=== PATIENT | male | born 1970 | race Caucasian/White ===

== ENCOUNTER 2020-05-16 01:17 | Outpatient (CLI) | payer BC, SELFPAY ==
[2020-05-16 19:02] LABS: SARS-CoV-2 RNA PCR Negative
== END 2020-05-16 01:18 | disposition home or self-care (01) ==
LOC: ANHCOVIDDT 01:18
PROVIDERS: PCP Family Medicine; Visit Provider Internal Medicine Gastroenterology
DX: Z01.812 Encounter for preprocedural laboratory examination (principal); Z20.828 Contact with and (suspected) exposure to other viral communicable diseases
CPT/HCPCS: 87635; C9803; U0003

== ENCOUNTER 2020-05-18 00:41 | Day surgery (SDC) | payer BC, SELFPAY ==
[2020-05-15 09:04] VITALS: BMI 23.5
[2020-05-18 06:22] VITALS: BP 129/79; PULSE 95; RESP 16; TEMP 36.1; O2SAT 98
[2020-05-18] MEDS: LACTATED RINGERS 1,000 ML 150 ML IV CONT (06:28)
--- NOTE | 2020-05-18 07:14 | WPDANESEPPF ---
Anes - Initial Pre Proc Eval Procedure: Operation Date: 05/18/20 07:30 Proposed Procedures p Screening Colonoscopy - Bandar Thurman MD Date/Time: 05/18/20 07:14 Surgeon: Bandar Thurman MD Pre Op Diagnosis: neoplasm screening Patient Data Age: 49 Gender: M Height: 5 ft 7 in Weight: 66.4 kg Last Vital Signs Temp 97 F L 05/18/20 06:22 Pulse 95 05/18/20 06:22 Resp 16 05/18/20 06:22 BP 129/79 05/18/20 06:22 Pulse Ox 98 05/18/20 06:22 Allergies Allergy/AdvReac Type Severity Reaction Status Date / Time No Known Allergies Allergy Verified 05/18/20 06:21 Home Medications Medication Instructions Recorded Confirmed Type multivitamin 1 tablet PO DAILY 08/18/19 05/15/20 History Patient hx anesthesia problems: none Family hx anesthesia problems: none PMFSH Past Medical History Medical History (Updated 12/09/19 @ 12:29 by Danny Gonzalez MD) Fam hx-ischem heart disease Surgical History Surgical History H/O vasectomy Family History Family History Father Family history of hypercholesterolemia Family history of mental disorder Hypertension Family history of coronary artery disease Mother Family history of hypercholesterolemia Family history of coronary artery disease Grandparent Hypertension Other Family history of cardiovascular disease Social History Social History Smoking status: Never smoker Alcohol intake: current Substance use type: does not use Living arrangements: with family Gender identity (if verbalized by the patient): Male Spiritual care concerns: No Anes - Eval Final PreProcedure Day of Procedure 05/18/20 07:14 Patient weight: normal Heart: regular rate and rhythm Lungs: clear to auscultation Airway: Mallampati scale class 1 Neurological: alert and oriented Last oral intake: >/= 8 hours ASA classification: I Emergent: no Anesthetic plan: proceed Anesthesia type and monitoring: general GIVS and standard monitoring Informed Consent: The patient's anesthetic plan and its attendant risks and benefits were discussed with the patient/family/POA. Questions were solicited and answers provided to the satisfaction of the patient/family/POA.
--- NOTE | 2020-05-18 07:51 | WPDGICN ---
Assessment and Plan Assessment and plan (1) Encounter for screening colonoscopy: Code(s): Z12.11 - Encounter for screening for malignant neoplasm of colon Status: Acute Assessment and Plan: Patient presents for screening colonoscopy appears to be at average risk for colon polyps. plan is for colonoscopy. Further recommendations will be given after endoscopy. GI Consult Note Consult date/time: 05/18/20 07:51 HPI: Héctor Manzano is a 49 year old male Seen in evaluation at the request of Dr. Danny Gonzalez. Patient presents for screening colonoscopy. His current weight appetite bowel movements are normal. He denies abdominal pain. He has had no bleeding. His bowel habits are normal. His family history is noncontributory. Review of Systems Review of Systems: All systems reviewed & are unremarkable except as noted in HPI and below PMFSH Past Medical History Medical History (Updated 05/18/20 @ 07:53 by Bandar Thurman MD) Fam hx-ischem heart disease Surgical History Surgical History H/O vasectomy Family History Family History Father Family history of hypercholesterolemia Family history of mental disorder Hypertension Family history of coronary artery disease Mother Family history of hypercholesterolemia Family history of coronary artery disease Grandparent Hypertension Other Family history of cardiovascular disease Social History Social History Smoking status: Never smoker Alcohol intake: current Substance use type: does not use Living arrangements: with family Gender identity (if verbalized by the patient): Male Spiritual care concerns: No Meds Home Medications and Allergies Home Medications Medication Instructions Recorded Confirmed Type multivitamin 1 tablet PO DAILY 08/18/19 05/15/20 History Allergies Allergy/AdvReac Type Severity Reaction Status Date / Time No Known Allergies Allergy Verified 05/18/20 06:21 Vital Signs Vital Signs - 24 hr 05/18/20 06:22 Temperature 97 F L Pulse Rate 95 Respiratory Rate 16 Blood Pressure 129/79 Pulse Oximetry 98 Exam Narrative: Exam Narrative: Physical exam reveals patient to be alert. Vital signs stable. HEENT exam unremarkable. Lungs are clear to auscultation and percussion. Heart is without murmur or extra sounds. Abdominal exam bowel sounds are present soft nontender with no organomegaly. Digital external rectal exam is normal.
[2020-05-18 07:56] VITALS: BP 108/70; PULSE 71; RESP 17; O2SAT 99
[2020-05-18 08:06] VITALS: BP 106/68; PULSE 53; RESP 15; O2SAT 100
[2020-05-18 08:16] VITALS: BP 115/73; PULSE 68; RESP 15; O2SAT 100
== END 2020-05-18 08:25 | disposition home or self-care (01) ==
PROVIDERS: PCP Family Medicine; Visit Provider Internal Medicine Gastroenterology
PROC: 0DJD8ZZ Inspection of Lower Intestinal Tract, Via Natural or Artificial Opening Endoscopic (ICD-10-PCS; CPT 45378; principal; 2020-05-18 07:30)
DX: Z12.11 Encounter for screening for malignant neoplasm of colon (principal); K64.8 Other hemorrhoids
CPT/HCPCS: 45378; J2704; J7120

== ENCOUNTER → 2022-05-14 11:08 | Outpatient (CLI) | payer BC, SELFPAY ==
--- NOTE | ~2022-05-14 | XR_ITS ---
EXAM: XR foot RT min 3V DATE: 05/14/2022 11:33 HISTORY: running injury pain 5th metatarsal for 10 days . COMPARISON: None available. FINDINGS: Normal mineralization. No fracture or dislocation. No lytic or blastic lesion. Joint space s are maintained. Loss of the normal longitudinal arch. Mild plantar enthesopathy No erosion or perio steal change. Soft tissues within normal limits. IMPRESSION: Mild plantar enthesopathy. Pes planus. Reviewed, dictated and finalized at location K.
== END ==
PROVIDERS: PCP Family Medicine; Visit Provider Physician Assistant
DX: M79.671 Pain in right foot (principal); S99.921A Unspecified injury of right foot, initial encounter; M77.9 Enthesopathy, unspecified
CPT/HCPCS: 73630